=== PATIENT | female | born 2005 | race Caucasian/White ===

== ENCOUNTER 2024-03-03 22:39 | Emergency (ER) | payer OTHER, SELFPAY ==
[2024-03-03 22:43] VITALS: BP 143/94; PULSE 87; RESP 18; TEMP 36.9; O2SAT 99; BMI 25.6
== END 2024-03-03 22:58 | disposition home or self-care (01) ==
PROVIDERS: Emergency Provider Family Medicine
DX: Z53.21 Procedure and treatment not carried out due to patient leaving prior to being seen by health care provider (principal)